=== PATIENT | male | born 1985 | race Caucasian/White ===

== ENCOUNTER 2017-03-07 13:26 | Emergency (ER) | payer OTHER ==
[2017-03-07 13:40] VITALS: BP 127/73
== END 2017-03-07 16:53 | disposition home or self-care (01) ==
LOC: ED 13:26
DX: J03.90 Acute tonsillitis, unspecified (principal); J06.9 Acute upper respiratory infection, unspecified
CPT/HCPCS: J0696

== ENCOUNTER 2018-05-16 19:24 | Emergency (ER) | payer OTHER ==
[2018-05-16 20:35] VITALS: Ht 180.3 cm
[2018-05-16 22:26] VITALS: BP 113/89
== END 2018-05-16 22:26 | disposition home or self-care (01) ==
LOC: ED 19:24
DX: B34.9 Viral infection, unspecified (principal); R03.0 Elevated blood-pressure reading, without diagnosis of hypertension